=== PATIENT | female | born 1950 | race Caucasian/White ===

== ENCOUNTER → 2018-01-29 | Outpatient (CLI) | payer OTHER | END | disposition home or self-care (01) | LOC: CVU 09:33 | PROVIDERS: ATTEND Internal Medicine | DX: I73.9 Peripheral vascular disease, unspecified (principal); E78.00 Pure hypercholesterolemia, unspecified; H93.13 Tinnitus, bilateral; Z85.3 Personal history of malignant neoplasm of breast | CPT/HCPCS: 93922 ==

== ENCOUNTER 2020-09-14 09:43 | Outpatient (CLI) | payer MEDICARE | END 2020-09-14 23:59 | disposition home or self-care (01) | LOC: CFH 09:43 | PROVIDERS: ATTEND Internal Medicine Hematology & Oncology | DX: Z02.9 Encounter for administrative examinations, unspecified (principal) ==